=== PATIENT | male | born 1950 | race Caucasian/White ===

== ENCOUNTER 2018-09-14 12:26 | Emergency (ER) | payer BC, MEDICARE ==
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
[2018-09-14] MEDS ORDERED: Lidocaine 1% MPF ** 5 ML VIAL INJ ONE (13:43)
== END 2018-09-14 15:30 | disposition home or self-care (01) ==
LOC: UCEAST 12:26
DX: S91.011A Laceration without foreign body, right ankle, initial encounter (principal); V19.3XXA Pedal cyclist (driver) (passenger) injured in unspecified nontraffic accident, initial encounter; Y93.55 Activity, bike riding; Y92.9 Unspecified place or not applicable; E11.9 Type 2 diabetes mellitus without complications
CPT/HCPCS: 12002; 99202; G0463